=== PATIENT | male | born 1940 | race Caucasian/White ===

== ENCOUNTER 2020-11-13 19:44 | Inpatient (IN) | payer MEDICARE ==
[~2020-11-13] VITALS: Ht 182.9 cm; Wt 81.2 kg
[2020-11-13 20:19] LABS: HEMOGLOBIN 8.8 gm/dl (14.0-17.5); RED BLOOD COUNT 2.56 M/UL (4.20-5.50)
[2020-11-13 20:36] LABS: BUN/CREATININE RATIO 22 (0-10)
[2020-11-13 23:01] LABS: BORDETELLA PARAPERTUSSIS Not Detected (Not Detectd); BORDETELLA PERTUSSIS Not Detected (Not Detectd); CHLAMYDIA PNEUMONIAE Not Detected (Not Detectd); CORONAVIRUS HKU1 Not Detected (Not Detectd); CORONAVIRUS NL63 Not Detected (Not Detectd); CORONAVIRUS OC43 Not Detected (Not Detectd); CORONOAVIRUS 229E Not Detected (Not Detectd); HUMAN METAPNEUMOVIRUS Not Detected (Not Detectd); HUMAN RHINOVIRUS/ENTEROVIRUS Not Detected (Not Detectd); INFLUENZA A Not Detected (Not Detectd); INFLUENZA B Not Detected (Not Detectd); MYCOPLASMA PNEUMONIAE Not Detected (Not Detectd); PARAINFLUENZA VIRUS 1 Not Detected (Not Detectd); PARAINFLUENZA VIRUS 2 Not Detected (Not Detectd); PARAINFLUENZA VIRUS 3 Not Detected (Not Detectd); PARAINFLUENZA VIRUS 4 Not Detected (Not Detectd); RESPIRATORY SYNCYTIAL VIRUS Not Detected (Not Detectd)
[2020-11-13 23:52] LABS: SARS-CoV-2 NOT DETECTED (Not Detectd)
[2020-11-14 05:32] LABS: HEMOGLOBIN 7.5 gm/dl (14.0-17.5); WHITE BLOOD COUNT 9.3 K/UL (4.5-11.0)
[2020-11-14 05:35] LABS: RED BLOOD COUNT 2.18 M/UL (4.20-5.50)
[2020-11-14 06:00] LABS: BUN/CREATININE RATIO 20 (0-10)
[2020-11-14] MEDS ORDERED: NORVASC10 MG PO (10:18)
[2020-11-14] MEDS ORDERED: ZESTRIL5 MG PO (10:18)
[2020-11-14] MEDS ORDERED: INDERAL TAB 1010 MG PO (10:19)
[2020-11-14] MEDS ORDERED: FLOMAX 0.4 MG0.4 MG PO (10:19)
[2020-11-14] MEDS ORDERED: NEURONTIN300 MG PO (10:23)
[2020-11-14] MEDS ORDERED: CRESTOR10 MG PO (10:23)
[2020-11-14] MEDS ORDERED: PROSCAR5 MG PO (10:23)
[2020-11-14] MEDS ORDERED: VITAMIN D350 MCG PO (10:24)
[2020-11-14] MEDS ORDERED: ASPIRIN EC81 MG PO (10:25)
[2020-11-14] MEDS ORDERED: VITAMIN C1000 MG PO (10:25)
[2020-11-14] MEDS ORDERED: THERA-M TABLET1 EACH PO (10:26)
[2020-11-14] MEDS ORDERED: PROAIR HFA8.5 GM INH (10:28)
[2020-11-14] MEDS ORDERED: SINEMET 25-1001 EACH PO (10:29)
[2020-11-14] MEDS ORDERED: FLONASE 0.05% N16 GM (10:32)
[2020-11-14] MEDS ORDERED: VITAMIN B-121000 MC3 PO (10:32)
[2020-11-14] MEDS ORDERED: LANTUS100 UNIT/1 SC (10:33)
[2020-11-15 04:44] LABS: HEMOGLOBIN 7.8 gm/dl (14.0-17.5); RED BLOOD COUNT 2.29 M/UL (4.20-5.50)
[2020-11-15 05:04] LABS: BUN/CREATININE RATIO 16 (0-10)
[2020-11-15 05:40] LABS: WHITE BLOOD COUNT 14.6 K/UL (4.5-11.0)
[2020-11-15 15:30] LABS: WHITE BLOOD COUNT 11.4 K/UL (4.5-11.0)
[2020-11-16 04:59] LABS: HEMOGLOBIN 7.8 gm/dl (14.0-17.5); RED BLOOD COUNT 2.27 M/UL (4.20-5.50); WHITE BLOOD COUNT 17.1 K/UL (4.5-11.0)
[2020-11-16 07:02] LABS: BUN/CREATININE RATIO 16 (0-10)
[2020-11-17 05:14] LABS: HEMOGLOBIN 7.3 gm/dl (14.0-17.5); RED BLOOD COUNT 2.16 M/UL (4.20-5.50); WHITE BLOOD COUNT 15.7 K/UL (4.5-11.0)
[2020-11-17 05:31] LABS: BUN/CREATININE RATIO 25 (0-10)
--- NOTE | 2020-11-17 07:36 | NUR ---
around 5 am the daughter came out and said the pt was pulling off tele, pulse ox, oxygen. I went in and tried to redirect pt I was able to get a manual po and was getting a reading of 72. Pt refusing to put his 5 liters HFNC on. I gave him haldal IM injection. Was able to get oxygen back on and get his sats back to 90%. Within a few minutes he repeated the above episode. The pt is alert with confusion, and his daughter is his POA. Pt is a full code at this time. He pulled off the oxygen 3 more times with O2 sat dropping as low as 59% and HR 30. I was ready twice to call MANAGER OF PLANNING, when he would allow me to put the oxygen back on him. I spoke with the pump house technician and Dr. Castañeda and felt the pt should be moved to PCU. I called report to [facility] and moved the pt to PCU room 61
[2020-11-18 01:53] LABS: HEMOGLOBIN 7.8 gm/dl (14.0-17.5); RED BLOOD COUNT 2.29 M/UL (4.20-5.50)
[2020-11-18 02:00] LABS: WHITE BLOOD COUNT 21.4 K/UL (4.5-11.0)
[2020-11-18 02:17] LABS: BUN/CREATININE RATIO 29 (0-10)
[2020-11-18] MEDS ORDERED: LEVOFLOXACIN500 MG PO (11:52)
--- NOTE | 2020-11-18 12:35 | NUR ---
PATIENTS ROOM AIR SATURATION IS 86%.
== END 2020-11-18 16:45 | disposition home or self-care (01) | DRG 834 ==
LOC: ER1 19:44 → CDU 22:55 → MED SURG 4 22:55 → PROG CARE 11-17 08:00
PROVIDERS: Family Medicine; Internal Medicine; ADMIT Internal Medicine
PROC: 07DR3ZX Extraction of Iliac Bone Marrow, Percutaneous Approach, Diagnostic (ICD-10-PCS; principal; 2020-11-16)
DX: C91.00 Acute lymphoblastic leukemia not having achieved remission (principal); J15.8 Pneumonia due to other specified bacteria; J96.21 Acute and chronic respiratory failure with hypoxia; G93.40 Encephalopathy, unspecified; E11.9 Type 2 diabetes mellitus without complications; I10 Essential (primary) hypertension; D69.6 Thrombocytopenia, unspecified; Z20.822 Contact with and (suspected) exposure to COVID-19; I25.10 Atherosclerotic heart disease of native coronary artery without angina pectoris; E78.5 Hyperlipidemia, unspecified; N40.0 Benign prostatic hyperplasia without lower urinary tract symptoms; G20 Parkinson's disease; D53.9 Nutritional anemia, unspecified; E55.9 Vitamin D deficiency, unspecified; E53.8 Deficiency of other specified B group vitamins; Z85.118 Personal history of other malignant neoplasm of bronchus and lung; Z85.038 Personal history of other malignant neoplasm of large intestine; Z90.2 Acquired absence of lung [part of]; Z90.49 Acquired absence of other specified parts of digestive tract; Z95.1 Presence of aortocoronary bypass graft; Z79.82 Long term (current) use of aspirin; Z79.4 Long term (current) use of insulin; Z79.899 Other long term (current) drug therapy; Z79.51 Long term (current) use of inhaled steroids; Z87.891 Personal history of nicotine dependence; Z88.5 Allergy status to narcotic agent; Z88.6 Allergy status to analgesic agent
CPT/HCPCS: 0240U; 36415; 36600; 71045; 71046; 80048; 80053; 80202; 81001; 82550; 82553; 82803; 82962; 83540; 83550; 83874; 83880; 84132; 84484; 85007; 85025; 85027; 85097; 85610; 86140; 87040; 87070; 87081; 87086; 87205; 87633; 88341; 88342; 93005; 94640; 94660; 94664; 94760; 96365; 96368; 96375; 99285; G0378; J1630; J1650; J1940; J1956; J2543; J3370; J3486; J7030; J7070